=== PATIENT | male | born 1950 | race Caucasian/White ===

== ENCOUNTER → 2020-04-22 13:58 | Outpatient (CLI) | payer MEDICARE, SELFPAY ==
[2020-04-22 13:03] VITALS: BMI 24.0
[2020-04-22 14:19] LABS: Hemoglobin 16.3 g/dL (13.0-16.5); Mean Corp Hgb Conc 33.3 g/dL (32-36); Mean Corpuscular Hgb 33.1 pg (27.0-32.0); Mean Corpuscular Volume 99.4 fL (80-94); Mean Platelet Vol. 8.9 fl (6.2-12.0); Platelet Count 461 K/mm3 (150-450); RBC Distribution Width CV 12.6 % (11.6-14.6); Red Blood Count 4.93 M/mm3 (4.6-6.2); White Blood Count 15.3 K/mm3 (4.4-11.0)
[2020-04-22 14:26] LABS: Prothrombin Time (Protime)PT. 12.3 SECONDS (11.7-14.9)
== END ==
PROVIDERS: PCP Family Medicine; Referring Provider Internal Medicine Critical Care Medicine; Visit Provider Internal Medicine Critical Care Medicine
DX: F17.211 Nicotine dependence, cigarettes, in remission (principal); I48.0 Paroxysmal atrial fibrillation
CPT/HCPCS: 36415; 85027; 85610

== ENCOUNTER → 2020-04-28 08:28 | Outpatient (CLI) | payer MEDICARE, SELFPAY ==
[2020-04-22 13:03] VITALS: BMI 24.0
[2020-04-28] VITALS (18 sets, daily range): BP systolic 94–172; BP diastolic 24–134; PULSE 23–97; RESP 16–38; TEMP 36.6; O2SAT 92–99; BMI 23.0
--- NOTE | 2020-04-28 08:29 | CT_ITS ---
PROCEDURE: CT GUIDED CORE NEEDLE BIOPSY OF A left lower lobe LUNG LESION INDICATION: Male, 70 years old. Left lung mass biopsy PHYSICIAN: Dr. TREASURE Claudio CONSENT: Written informed consent was obtained having explained the risks, benefits and alternatives in detail with the patient who accepted the risks and agreed to proceed. Laboratory review and clinical assessment was performed. CONSCIOUS SEDATION PROTOCOL: The Drugs used were: 1 mg Versed, IV., and 25 mcg Fentanyl, IV. The sedation time was: 24 minutes. Conscious sedation was started at 10:34 AM and terminated at 10:58 AM. The conscious sedation protocol was independently monitored. RADIATION DOSAGE (If Supplied By Facility): CTDIvol = ( 15.6 ) mGy, DLP = ( 240.03 ) mGycm Individualized dose optimization techniques were used for this CT. TECHNIQUE: The patient was placed in the prone position. A noncontrast CT was performed to localize the lesion in the posterior aspect of the left lower lobe . The skin surface was prepped and draped in a sterile fashion. 1% lidocaine was used for local anesthesia. Using CT guidance, a 20-gauge coaxial biopsy device was advanced to the periphery of the lesion. A total of 4 core specimens were obtained. The specimens were placed in a formalin solution. A post procedure CT demonstrated no adverse sequelae or pneumothorax. The patient tolerated the procedure well without adverse event. A negative biopsy does not exclude malignancy. Further imaging or clinical followup based on patient condition and degree of clinical suspicion for malignancy. Suggest rebiopsy, if biopsy results do not match with clinical scenario. CT/Biopsy/Inj or Needle Placement IMPRESSION: 1. CT directed core needle biopsy of the posterior left lower lobe pulmonary nodule using CT image guidance with image documentation as described. Pathology results are pending. 2. Conscious Sedation protocol utilized with independent monitoring. Electronically Signed: Luis Chopra MD at 11:23 EST , Service support ,
[2020-04-28 08:58] LABS: Partial Thromboplast Time 32.7 Seconds (24.1-36.2)
--- NOTE | 2020-04-28 10:30 | ASPIGT_PTH ---
PATIENT: KIERRA MORA LOC: [place] U#:[id number] AGE/SX: 74/M ROOM: RE04/28/[address]: Dr. Bryce Enriquez DO : 1950 BED: DIS: SPEC #: [id number] RECD: 04/28/20 11:00 STATUS: DAVEY LIGeeta #: [id number] YE: 04/28/20 10:[address]: Bryce Enriquez DEPT: SURGICAL PATHOLOGY RECD BY: Kamilah Corley ENTERED: 04/28/20 12:39 SP TYPE: ASP RAD OTHR DR: Dr. Beto Enriquez MD Tissues: Lung, NOS Procedures: FNA Specimen Adequacy Special Stain Group II Mucicarmine Stain (control) Surgery Specimen Level IV Imprint (control) HEADER OPERATION: Left lung mass, CT-guided core biopsy PRE-OP DIAGNOSIS: Lung mass TISSUE SUBMITTED: Left lower lung 20-gauge core x4 MICROSCOPIC DIAGNOSIS Left lower lung mass, CT-guided core biopsy: Non-small cell carcinoma, favor mucinous adenocarcinoma, consistent with lung primary. See comment. SJ:kimber 04/29/2020 COMMENT The specimen is evaluated at the time of biopsy by Dr. Mccoy. Immediate Evaluation = Malignant cells present derived from non-small cell carcinoma. Mucin stain with matched control is used in the evaluation of the specimen. The tumor cells are diffusely positive for mucin. Immunohistochemistry ([id number]) supports the above diagnosis. Molecular studies on the tumor can be performed if clinically indicated. Please notify the laboratory if they are needed. This case was reviewed and diagnosis discussed with Dr. Andrews on 06/05/20. Case has been reviewed in consultation with Dr. Mccoy who concurs with the above diagnosis. IDC:DEBBIE MICROSCOPIC DESCRIPTION Slides are reviewed. GROSS DESCRIPTION Received in fixative is one container labeled with the patient's name and designated left lung mass, CT-guided core biopsy. The specimen consists of multiple irregular fragments of lott soft tissue that in aggregate measure 1 x 0.1 x 0.1 cm. The specimen is totally submitted in one cassette. Three touch imprints are prepared at the time of core biopsy. / SJ:rg 04/28/20 TC:0 CPT: 44449, 26787, 45392 ADDENDUM ADDENDUM ADDENDUM ADDENDUM ADDENDUM ADDENDUM 05/21/2020 09:41 ADDENDUM 05/21/2020 09:41 ADDENDUM 05/21/2020 09:41 ADDENDUM 05/21/2020 09:41 ADDENDUM 05/21/2020 09:41 PD-L1 (KEYTRUDA) IMMUNOHISTOCHEMICAL ANALYSIS FROM [facility] RESULTS: Tumor proportion score: <1% / Negative Please see complete report in e-chart or EMR
--- NOTE | 2020-04-28 10:30 | IMM_PTH ---
PATIENT: KIERRA MORA LOC: CT U#:[id number] AGE/SX: 74/M ROOM: RE04/28/[address]: Dr. Bryce Enriquez DO : 1950 BED: DIS: SPEC #: [id number] RECD: 04/28/20 14:14 STATUS: DAVEY REQ #: [id number] YE: 04/28/20 10:[address]: Bryce Enriquez DEPT: IMMUNOHISTOCHEMISTRY RECD BY: Misa Barillas ENTERED: 04/28/20 14:16 SP TYPE: IMMUNO OTHR DR: Dr. Beto Enriquez MD Tissues: Left lung, NOS Procedures: RCC (add) NAPSIN A (add) CK20 (add) CK5-6 (add) CK7 (add) CK8 (add) HEP PAR (add) TTF1 (add) Pankeratin (initial) P40 (add) PSAP (add) PHYSICIAN & INSTITUTION [address] [address] SPECIMEN INFORMATION: Tissue Source: Left lung Clinical Info: Left lung mass Specimen Number: [id number] CPT code: 17763, 60609 x10 METHODOLOGY: Deparaffinized sections of prefer/formalin-fixed tissue or PAP/DQ stained slides are incubated with monoclonal/polyclonal antibodies/oligonucleotide probes. Localization is made via biotin free immunoperoxidase method. Appropriate controls are performed and reacted as expected. Results on target cell population are indicated in the following table: RESULTS: ANTIBODY / CLONE RESULT AE1-3 (AE1/AE3/PCK26) positive CK7 (OV-TL12/30) positive CK8 (15tkojT12) positive CK20 (KS20.8) negative TTF-1 (8G7G3/1) positive Napsin A (Rabbit Polyclonal) positive HepPar (OCh1E5) positive RCC (PN-15) positive, rare cells PSAP (PASE/4LJ) negative CK5-6 (D5 & 1684) positive, a few cells P40 (BC28) negative These tests were developed and their performance characteristics determined by [facility]. They may not have been cleared or approved by the U.S. Food and Drug Administration. The FDA has determined that such clearance or approval is not necessary. The above immunohistochemical/dualISH markers are ordered and reviewed by the Pathologist. INTERPRETATION: Left lung, CT-guided biopsy: Non-small cell carcinoma, favor adenocarcinoma, consistent with lung primary. DEBBIE:kimber 04/29/2020 Case has been reviewed in consultation with Dr. De La Paz who concurs with the above diagnosis. IDC:AM
--- NOTE | 2020-04-28 10:30 | RAD_ITS ---
STUDY: X-RAY CHEST REASON FOR EXAM: Male, 70 years old. POST LEFT LUNG BIOPSY TECHNIQUE: AP inspiration and expiration views. Immediate post left lung biopsy radiographs. COMPARISON: None. FINDINGS: Tiny left apical pneumothorax. The patient is asymptomatic. RAD/Chest Insp/Exp 2 View IMPRESSION: Tiny left apical pneumothorax. Electronically Signed: Luis Chopra MD at 13:17 EST , Service support ,
[2020-04-28] MEDS: Midazolam 2 MG/2 ML Syringe IV (10:35)
[2020-04-28] MEDS: fentaNYL 100 MCG/2 ML Ampul IV (10:38)
--- NOTE | 2020-04-28 12:28 | NURSING ---
1125 pt home med inhaler is in the locker and patient's daughter and are unavailable by phone, left messages, called respiratory for treatment, they advised to call pharmacy with the patient home meds dosage for equivlant, dr chopra gave verbal order for albuteral order. 1135 order in the computer, talked with pharmacy, staff went to get the medication ordered, called back respiratory to let them know order was in and staff was getting the medication. 1145 master ellsworth obtained to get into patient locker, albuteral inhaler given to patient and he used it. Dr Chopra aware of this. 1155 respiratory present to check on patient, he is doing better but still coughing and bringing up yellow drainage, he states lungs are still tight but able to breath better, respiratory treatment on hold for now. Nurse will continue to evaluate
--- NOTE | 2020-04-28 12:30 | RAD_ITS ---
STUDY: X-RAY CHEST REASON FOR EXAM: Male, 70 years old. 2 HRS - LEFT POST LUNG BX. INSPR/EXPR VWS TECHNIQUE: AP inspiration and expiration views. COMPARISON: Comparison is made with prior examination done earlier today. FINDINGS: There is a 5-10% left pneumothorax. The patient is asymptomatic. RAD/Chest Insp/Exp 2 View IMPRESSION: 5-10% left pneumothorax on the 2 hour delayed post left lung biopsy radiograph. The patient is asymptomatic. Electronically Signed: Luis Chopra MD at 13:17 EST , Service support ,
[2020-04-28] MEDS: Albuterol 2.5 MG/3 ML VIAL.NEB. INHALATION (12:58)
== END ==
PROVIDERS: PCP Family Medicine; Referring Provider Internal Medicine Critical Care Medicine; Visit Provider Internal Medicine Critical Care Medicine
DX: R91.8 Other nonspecific abnormal finding of lung field (principal); I48.0 Paroxysmal atrial fibrillation
CPT/HCPCS: 32408; 36415; 71046; 77012; 85730; 88172; 88305; 88313; 88341; 88342; 94640; 99155; 99156; J7040; A4216; C2613

== ENCOUNTER → 2020-05-09 15:01 | Outpatient (CLI) | payer MEDICARE, SELFPAY ==
[2020-04-30 10:10] VITALS: BMI 22.8
[2020-05-06 15:19] VITALS: BMI 21.9
--- NOTE | 2020-05-09 15:04 | MRI_ITS ---
STUDY: MRI BRAIN WITH AND WITHOUT CONTRAST REASON FOR EXAM: Male, 70 years old. Staging for NSCLC TECHNIQUE: Standardized multiplanar fat and water weighted pulse sequences were obtained. 15CC IV DOTAREM was administered for the contrast portion of the examination. COMPARISON: None. FINDINGS: There are multiple small diffusely distributed brain metastases. The largest are in the right parietal occipital lobe at 1.3 cm and right frontal posterior parasagittal lobe 1.3 cm. Many of the lesions have peripheral rim enhancement/nodular with central lower enhancement, probably cystic/necrotic. Most lesions are surrounded by disproportionate vasogenic edema. Lesions are present bilaterally in the subcortical hemispheres, basal ganglia, left lon. Visually estimated lesion number is 20-25. There is no mass effect, shift, hydrocephalus or herniation. There is no acute infarct or extra parenchymal fluid collections. There is left mastoid effusion and right maxillary sinus fluid attenuation. MRI/Brain W/WO Contrast IMPRESSION: Multiple small brain metastases. Electronically Signed: Adonay Lake MD at 19:59 EST Tel , Service support ,
== END ==
PROVIDERS: PCP Family Medicine; Referring Provider Internal Medicine Critical Care Medicine; Visit Provider Internal Medicine Critical Care Medicine
DX: C34.90 Malignant neoplasm of unspecified part of unspecified bronchus or lung (principal)
CPT/HCPCS: 70553; A9575

== ENCOUNTER → 2020-05-13 14:50 | Outpatient (CLI) | payer MEDICARE, SELFPAY ==
[2020-05-06 15:19] VITALS: BMI 21.9
--- NOTE | 2020-05-13 16:00 | PET_ITS ---
EXAMINATION: FDG PET/CT INDICATIONS: A 70-year-old male with reported history of carcinoma of the lung presenting for initial staging examination. COMPARISON EXAMINATION: CT lung biopsy report dated 04/28/20 INDEX LESION SIZE SUV INTERPRETATION Left mid posteromedial lung-left lower lobe 48.8 x 61.4-mm (frame 172) 7.0 Fulfills quantitative criteria for viable neoplasm Mediastinum, left thoracic perihilum 15.9-mm (largest) (frame 181) 4.9 (max) Fulfills quantitative criteria for viable neoplasm Left hemithorax pleural interface (n=2) 21.4-mm (largest) (frame 168) 6.4 (max) Fulfills quantitative criteria for viable neoplasm TECHNIQUE: Following the intravenous administration of 15.0 mCi of F-18 deoxyglucose via the left antecubital fossa, multiplanar image acquisitions of the neck, chest, abdomen and pelvis to level of mid thigh, obtained at one hour post radiopharmaceutical administration contemporaneously interpreted with the current CT of the neck, chest, abdomen and pelvis to level of mid thigh, dated 05/13/[address] lung biopsy report dated 04/28/20 reveal: SERUM GLUCOSE LEVEL: 123 mg/dl. HEIGHT: 69 inches. WEIGHT: 150 lbs. FINDINGS: 1. An increase in glucose metabolism with central photopenia is defined in the left mid-lower posteromedial lung-left lower lobe generating a calculated maximal standard uptake value of 7.0. The maximal axial diameter of the corresponding parenchymal density-mass on review of CT of the chest dated 05/13/20 is 48.8-mm (transverse) x 61.4-mm (AP). 2. Enhanced tracer uptake is observed in the carinal level mediastinum to the left of the midline, left infrahilar region adjacent to the descending thoracic aorta rendering a calculated maximal standard uptake value of 4.9. The maximal axial diameter of the largest, most conspicuous metabolic-morphologic abnormality on review of CT of the chest dated 05/13/20 is 15.9-mm (transverse). 3. Two separate foci of increased radiopharmaceutical concentration are manifest in the left hemithorax at the pleural interface. The calculated maximal standard uptake value is 6.4. The maximal axial diameter of the largest, most conspicuous metabolic, morphologic abnormality on review of CT of the chest dated 05/13/20 is 21.4-mm (AP). 4. Normal physiologic distribution of the radiopharmaceutical is apparent in the hepatic (2.5) and splenic parenchyma, both renal units, bladder and visualized intestinal tract. The visualized portion of the cerebral cortical-subcortical structures demonstrate symmetric and preserved glucose metabolism. Diffuse radiopharmaceutical concentration is noted in all four quadrants of the abdomen and pelvis. Pertinent CT findings are as follows: CHEST: Emphysematous change is noted in the bilateral upper lung zones. A loculated left basilar hemithorax pleural effusion demonstrates no evidence of quantitatively significant increased FDG uptake. There is atherosclerotic calcification defined in the thoracic aorta without evidence of dilatation-aneurysm formation. Coronary arterial calcification is observed. Bilateral axillary soft tissue densities with fatty hilus are ametabolic. Additional subcentimeter mediastinal soft tissue reveals no evidence of increased FDG uptake. ABDOMEN AND PELVIS: Cholelithiasis is defined. Dystrophic calcification is manifest within the prostate gland without evidence of increased tracer uptake. Right and left inguinal soft tissue densities are non-glucose avid. Dystrophic calcification is manifest within the prostate gland without evidence of increased tracer uptake. SKELETAL: Degenerative changes are noted in the cervical, thoracic and lumbar spine without evidence of increased radiopharmaceutical concentration. There are no sclerotic, mixed sclerotic-lytic and/or primarily lytic changes noted on review of the appendicular, axial skeletal structures. PET/PET/CT Tumor Base -Thigh Init IMPRESSION: 1. ABNORMAL EXAMINATION INDICATIVE OF MALIGNANT PRIMARY-METASTATIC VIABLE NEOPLASM. 2. Increased glucose concentration observed in the left mid lung-left lower lobe fulfills quantitative criteria for viable neoplasm. (Tate et al, Annals of Internal Medicine, 138:724, 2003). 3. Viable metastatic disease is noted in the mediastinum and left thoracic perihilum. (Ky et al, Journal of Clinical Oncology 16:2142, 1998). 4. Facilitated tracer concentration observed in the left hemithorax at the pleural interface in two separate nodular presentations fulfills quantitative criteria for malignant transformation-metastasis. (Jodi, et al, Chest 122:1918, 2002). Electronic Signature Fabian Peters D.O. Accurate Quantification of SUVs for this report are calculated using the exclusive [employer]? Technology.??Exclusive [place]. Patent [employer]uquan? Technology (U.S. Patent No. [phone] [phone]). Electronically Signed: Fabian Peters DO at 22:24 EST Tel , Service support ,
== END ==
PROVIDERS: PCP Family Medicine; Referring Provider Internal Medicine Critical Care Medicine; Visit Provider Internal Medicine Critical Care Medicine
DX: Z85.118 Personal history of other malignant neoplasm of bronchus and lung (principal); C34.02 Malignant neoplasm of left main bronchus
CPT/HCPCS: 78815; A9552

== ENCOUNTER 2020-06-17 05:57 | Day surgery (SDC) | payer MEDICARE, SELFPAY ==
[2020-05-15 10:21] VITALS: BMI 23.1
[2020-06-12 09:27] VITALS: BMI 23.4
[2020-06-17] VITALS (7 sets, daily range): BP systolic 107–121; BP diastolic 61–76; PULSE 69–81; RESP 16–18; TEMP 36.2–36.4; O2SAT 96–99; BMI 23.3
[2020-06-17] MEDS: Lactated Ringers 1,000 ML 100 ML IV (06:41)
--- NOTE | 2020-06-17 07:00 | HP_ITS ---
Intake Vital Signs 06/12/20 Height 5 ft 9 in 06/12/20 Weight: 159 lb 06/12/20 BMI 23.4 06/12/20 BP 124/75 H 06/12/20 Blood Pressure Location Rt brachial 06/12/20 Position Sitting 06/12/20 Respiration 16 Intake Visit Reasons: PORT PLACEMENT Chief Complaint: port placement Lining Stitcher Required: No Is patient in pain?: No Allergies No Known Allergies Allergy (Verified 06/12/20 09:28) Medications aspirin 325 mg tablet 325 mg PO QDAY tablet 04/21/17 [History Confirmed 06/12/20] atenolol 100 mg tablet 100 mg PO QDAY #90 tablet 03/08/19 [Rx Confirmed 06/12/20] lisinopril 10 mg tablet 10 mg PO QDAY #90 tablet 03/26/20 [Rx Confirmed 06/12/20] albuterol sulfate 90 mcg/actuation aerosol inhaler 2 puff INHALATION Q4H PRN #8.5 gm 04/30/20 [Rx Confirmed 06/12/20] fluticasone fur. 100 mcg-umeclid 62.5 mcg-vilant 25 mcg inhalat.powder 1 inh INHALATION DAILY #60 each 04/30/20 [Rx Confirmed 06/12/20] ipratropium 0.5 mg-albuterol 3 mg (2.5 mg base)/3 mL nebulization soln 3 ml INHALATION Q4H PRN #180 ml 04/30/20 [Rx Confirmed 06/12/20] Dexamethasone [Decadron] 4 mg PO 4X/DAY #60 tablet 05/12/20 [Rx Confirmed 06/12/20] PFSH Medical History Essential hypertension (Chronic) Paroxysmal atrial fibrillation (Chronic) Palpitations (Acute) Hyperlipidemia (Chronic) Tobacco abuse (Acute) Hypertension (Inactive) Surgical History History of knee surgery (Acute) Family History Brother CAD (coronary artery disease) COPD (chronic obstructive pulmonary disease) Mother Colon cancer Breast cancer Mother No problems noted. Father Bone cancer Social History (Updated 06/12/20 @ 09:[address] Rhina Chavez MD) Smoking Status: Former smoker alcohol intake: current substance use type: does not use HPI HPI HPI: KIERRA MORA, is a 70 M who presents to the office today for HPI HPI Surgical H&P: Yes HPI: KIERRA MORA is a 70 M who presents to the office today for port placement due to metastatic lung cancer. ROS General General: Yes fatigue; no weight change Cardio Cardiovascular: Yes atrial fibrillation and high blood pressure; no chest pain Resp Respiratory: Yes shortness of breath, Yes cough, Yes COPD, Yes emphysema Exam Const General: cooperative, comfortable, no acute distress Chest Chest palpation & inspection: normal inspection of the chest (Upper chest) Resp Effort & Inspection: normal respiratory effort Cardio Rate: regular rate Assessment & Plan Problems 1. Adjustment and management of vascular access device Z45.2 2. Primary cancer of left lower lobe of lung C34.32 3. Brain metastases C79.31 Plan I have discussed above with the patient- Port-a-Cath placement. Right possible left Patient has been counseled as to the risks/benefits of the procedure. I have explained the risks of the surgery, including but not limited to: infection, bleeding, injury to any blood vessels/nerves, injury to lungs (such as pneumothorax or hemothorax and need for chest tube), not having any access, nonfunctioning of port due to thrombosis, infection of port, etc. the patient understands and agrees to proceed. I have answered all the patient's questions to the patient?s satisfaction and the patient has no further questions. Rhina Chavez M.D. Pager: [phone] [facility] [address] [place] [address], [address] [place] [id number] Office: [phone] Plan Detail Follow Up We will schedule port placement for 06/17/2020 Coding Level of Care Code Off vis,new,level 3 Diagnoses Adjustment and management of vascular access device Z45.2 Primary cancer of left lower lobe of lung C34.32 Brain metastases C79.31 COVID (Procedure Consent) Procedure Criteria Procedure Criteria: Yes Elective The surgeon/proceduralist and patient have discussed in detail the risk of exposure to and/or potential harm posed by the COVID-19 virus with having a surgery/procedure at this time versus the risk of? delaying the surgery/procedure. It is not possible to know either the risk of delaying the surgery or procedure or chance of getting an infection with perfect accuracy, but a joint decision was made between the patient and the surgeon/proceduralist ?to proceed at this time with the scheduled surgery/procedure as indicated on the consent form. I have re-examined the patient. There are no clinical changes since date of exam.
[2020-06-17] MEDS: Cefazolin 2 GM in 0.9% Normal Saline 100 ML IV (07:27)
[2020-06-17] MEDS: Bupivacaine Mpf 0.5% 30 ML VIAL (07:55)
[2020-06-17] MEDS: Lidocaine 1% /Epi 1:100 (20ml) 20 ML Vial (07:55)
--- NOTE | 2020-06-17 08:14 | PCM.OPRPT ---
Report of Operation Date of Procedure: 06/17/20 Pre-Operative Diagnosis: Z45.2, lung cancer Post-Operative Diagnosis: Same Surgery/Procedure Performed:: 1. Placement of right IJ Port-A-Cath. 2. Use of ultrasound. 3. Use of fluoroscopy Type of Anesthesia:: Local MAC Anesthesiologist: Yrn Thomas Special Medications: ancef 2 grams IV x1 Specimen's removed: none Estimated Blood Loss (mL): < 10 cc Fluids Replaced: 700 cc Description of Procedure: After informed consent was given, the patient was brought to the operating room and placed in the supine position. Appropriate time out protocol was followed. Patient was then given IV conscious sedation for anesthesia. The patient's right upper chest and neck were then prepped with a surgical skin preparation and sterile surgical drapes were placed. After proper landmarks were ascertained, the skin at the upper right chest area was then infiltrated with 1:1 mixture of 1% lidocaine with epinephrine and 0.5% marcaine. A needle trocar was then inserted into the right internal jugular vein with ultrasound guidance-multiple vessels were viewed with u/s and the right IJ was chosen-- and there was good aspiration of venous blood. A wire was then threaded into the needle trocar and this was visualized under fluoroscopy to ensure that the wire was in the superior vena cava. Once this was done, then the needle trocar was removed. A small skin jayna was made with an 11 blade knife at the wire entrance site. The dilator with the introducer sheath attached was then placed over the wire into the right internal jugular vein via the Seldinger technique and this was visualized under fluoroscopy. The dilator and sheath were in proper position as visualized by fluoroscopy. A subcutaneous pocket was then created caudad to the catheter insertion site. A transverse skin incision was made after the skin and subcutaneous tissues were infiltrated with local anesthetic. Blunt dissection was then used to create a space large enough for placement of the subcutaneous port. The catheter was then tunneled into the subcutaneous pocket. The wire and dilator were then removed. The catheter was then threaded into the introducer sheath and was positioned with its tip at the junction of the superior vena cava and the right atrium as visualized under fluoroscopy. The excess catheter was transected. The catheter was then attached to the subcutaneous port using manufacturers guidelines. The catheter was flushed with a heparin saline mixture prior to placement. Hemostasis was carefully controlled with electrocautery. The port was sutured to the subcutaneous fascia using 2-0 Vicryl suture at two sites. The port was then placed in the subcutaneous pocket. The incision were reapproximated with interrupted subdermal 3-0 vicryl sutures. The skin was reapproximated with 3-0 nylon suture in a interrupted fashion. Steristrips were used for reinforcement of the skin closure at IJ insertion site and a sterile opsite dressings were applied. The patient tolerated the procedure well. Implants Used: [employer] PowerPort isp M.R.I. 6Fr Lot [id number] ref [id number] Grafts/Implants Used: [employer] PowerPort isp M.R.I. 6Fr Lot [id number] ref [id number] - Complications none
--- NOTE | 2020-06-17 08:17 | DCINST_ITS ---
Discharge Diet: Light diet - advance as tolerated Discharge Activity: May not drive while taking narcotic pain medications. Call your doctor if your incision/area has: Continuous Slow Oozing, Sudden Increased Bleeding, Increased Pain/ Swelling, Increased Redness, Foul Smelling Discharge, Swelling at the incision site Call your doctor if you observe: Fever of 101 or Higher Change Dressing in (Days):: 2 - Okay to keep the dressing on the port site for 2 to 3 days Additional Dressing/Incision Instructions:: Keep port site clean and dry for 5 days. Okay to lower shower and upper sponge bath or tape off with a Ziploc bag to shower. Okay for the neck incision to get wet after 1 day. Steri-Strips will fall off in 7 to 10 days if did not follow-up okay to remove Allergies/Adverse Reactions: Allergies No Known Allergies Allergy (Verified 06/17/20 06:22) Medications to take at Discharge aspirin 325 mg tablet 325 mg PO QDAY tablet 04/21/17 atenolol 100 mg tablet 100 mg PO QDAY #90 tablet 03/08/19 lisinopril 10 mg tablet 10 mg PO QDAY #90 tablet 03/26/20 albuterol sulfate 90 mcg/actuation aerosol inhaler 2 puff INHALATION Q4H PRN #8.5 gm 04/30/20 Fluticasone/Umeclidin/Vilanter [Trelegy Ellipta 100-62.5-25] 1 each IH DAILY 06/13/20 Multivitamin with Folic Acid [Therems Multivitamin Tablet] 400 mcg PO DAILY 06/17/20 Oxycodone HCl/Acetaminophen [Percocet 5/325] 1 - 2 tablet PO Q6H PRN PRN 2 Days #5 tablet 06/17/20 The following prescriptions were given: Oxycodone HCl/Acetaminophen [Percocet 5/325] 1 - 2 tablet PO Q6H PRN PRN 2 Days #5 tablet PRN Reason: Pain Transmission Status: Sent to [facility] Primary Care Physician: Beto Enriquez MD [Primary Care Provider] - Test Results: Test results from this visit will be discussed in further detail at your follow- up appointment, if applicable. Please Follow Up With: Rhina Chavez MD - After 5 PM and on weekends call [phone] with any concerns When: Call the office for a follow-up appointment in 10 days to remove sutures Proposed Discharge Date: 06/17/20
--- NOTE | 2020-06-17 08:30 | RAD_ITS ---
STUDY: X-RAY CHEST REASON FOR EXAM: Male, 70 years old. Port -- pacu TECHNIQUE: Single AP portable view of the chest. COMPARISON: Comparison is made with prior examination dated 04/28/2020. FINDINGS: A right-sided portacatheter has been placed. The tip in the midportion of the superior vena cava. There is hyperinflation of the lungs consistent with chronic obstructive lung disease (COPD). Persistent 5.5 cm x 4.4 cm left perihilar mass. There is no demonstrated pleural abnormality. Normal size heart. Normal visualized pulmonary arteries. Normal visualized aortic arch and descending thoracic aorta. Normal visualized thoracic spine. Normal visualized ribs, clavicles, and shoulders. There is no demonstrated abnormality of the visualized soft tissue structures of the upper abdomen. RAD/CXR for Line Placement IMPRESSION: The tip of the right portacatheter is in the midportion of the superior vena cava. Stable left perihilar mass. Electronically Signed: Luis Chopra MD at 8:45 EDT , Service support ,
== END 2020-06-17 09:52 | disposition home or self-care (01) ==
LOC: SDC 05:58 → AC 05:59
PROVIDERS: PCP Family Medicine; Referring Provider Surgery; Visit Provider Surgery
PROC: (CPT 36561; principal; 2020-06-17 07:15)
DX: Z45.2 Encounter for adjustment and management of vascular access device (principal); C34.32 Malignant neoplasm of lower lobe, left bronchus or lung; C79.31 Secondary malignant neoplasm of brain; I10 Essential (primary) hypertension; I48.0 Paroxysmal atrial fibrillation; E78.5 Hyperlipidemia, unspecified; Z79.899 Other long term (current) drug therapy; Z79.82 Long term (current) use of aspirin; Z79.51 Long term (current) use of inhaled steroids; Z87.891 Personal history of nicotine dependence; J44.9 Chronic obstructive pulmonary disease, unspecified
CPT/HCPCS: 00532; 36561; 71045; 77001; 87426; C9803; J7120

== ENCOUNTER → 2020-06-30 17:32 | Outpatient (CLI) | payer MEDICARE, SELFPAY ==
[2020-05-15 10:21] VITALS: BMI 23.1
[2020-06-24 09:03] VITALS: BMI 22.7
--- NOTE | 2020-06-30 17:40 | RAD_ITS ---
INDICATION: lower back pain. 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 EXAMINATION/TECHNIQUE: X-RAY - XR Spine Lumbar 2 or 3 Views COMPARISON: None. FINDINGS: VERTEBRAE: Age indeterminate mild anterior wedge compression deformities of L1 and T12. 3 mm retrolisthesis L3 on L4. Preservation of the normal lumbar lordosis. Moderate multilevel facet arthropathy. DISCS: Moderate multilevel disc space narrowing and osteophytosis. INCLUDED ABDOMEN: Included bowel gas pattern is non-obstructive. OTHER: Degenerative changes of the bilateral sacroiliac joints. Vascular calcifications. RAD/Lumbar Spine 2 or 3 Views IMPRESSION: Age indeterminate mild anterior wedge compression deformities of L1 and T12. Grade 1 retrolisthesis L3 on L4. Moderate multilevel degenerative changes of the lumbar spine as described above. Electronically Signed: Jonathan Dawson MD at 22:48 EDT Tel , Service support ,
== END ==
PROVIDERS: PCP Family Medicine; Referring Provider Anesthesiology Pain Medicine; Visit Provider Anesthesiology Pain Medicine
DX: M54.9 Dorsalgia, unspecified (principal)
CPT/HCPCS: 72100

== ENCOUNTER → 2020-08-06 12:33 | Outpatient (CLI) | payer MEDICARE, SELFPAY ==
[2020-05-15 10:21] VITALS: BMI 23.1
[2020-07-22 11:11] VITALS: BMI 22.0
[2020-08-06 11:27] VITALS: BMI 20.7
--- NOTE | 2020-08-06 12:46 | MRI_ITS ---
STUDY: MRI LUMBAR SPINE WITHOUT CONTRAST REASON FOR EXAM: Male, 70 years old. BACK PAIN,COMPRESSION FX TECHNIQUE: Standardized fat and water weighted pulse sequences were obtained in the sagittal and axial planes. COMPARISON: None FINDINGS: T12-L1: Normal endplates. Normal disc height, hydration and morphology. Normal bilateral facet joints. Normal central canal and bilateral lateral recesses. Normal bilateral intervertebral neural foramina. Normal lumbar lordosis. There is no substantial scoliosis. Normal conus medullaris that terminates at the L1. Heterogeneous marrow signal throughout the lumbar spine and sacrum suggestive of marrow regeneration from chronic hypoventilation, lung disease, or anemia. L1-2: Mild bilateral facet hypertrophy with fluid the facet joints consistent with instability and mild ligament flavum hypertrophy. 2 mm retrolisthesis of L1 on L2 with a mild bilobed disc protrusion produces mild spinal stenosis and mild bilateral neural foraminal stenosis. L2-3: Mild bilateral facet hypertrophy with fluid in the facet joints consistent with instability and mild ligament flavum hypertrophy. 2 mm retrolisthesis of L2 on L3 with a mild bilobed disc protrusion produces mild spinal stenosis and mild bilateral neural foraminal stenosis. L3-4: Mild bilateral facet hypertrophy with facet joints consistent with instability and moderate ligament flavum hypertrophy. 2 mm retrolisthesis of L3 on L4 with a mild bilobed disc protrusion produces moderate spinal stenosis with mild bilateral lateral recess stenosis and moderate bilateral neural foraminal stenosis. L4-5: Moderate by lateral facet hypertrophy and ligament flavum hypertrophy. 2 mm retrolisthesis of L4 and L5 with a mild broad disc protrusion produces moderate spinal stenosis with moderate bilateral lateral recess stenosis with abutment of the L5 nerve roots bilaterally and moderate bilateral neural foraminal stenosis with abutment of the exiting L4 nerve roots bilaterally. L5-S1: Normal endplates. Normal disc height, hydration and morphology. Normal bilateral facet joints. Normal central canal and bilateral lateral recesses. Normal bilateral intervertebral neural foramina. Normal visualized sacral ala. Normal visualized paraspinous soft tissue structures. MRI/Spine Lumbar (Routine) IMPRESSION: Multilevel degenerative changes, as described above. Electronically Signed: Fabian Min MD at 15:49 EDT Tel , Service support ,
--- NOTE | 2020-08-06 12:46 | MRI_ITS ---
STUDY: MRI THORACIC SPINE WITHOUT CONTRAST REASON FOR EXAM: Male, 70 years old. BACK PAIN, COMPRESSION FX TECHNIQUE: Standardized fat and water weighted pulse sequences were obtained in the sagittal and axial planes. COMPARISON: None. FINDINGS: Normal kyphosis of the thoracic spine. There is no substantial scoliosis. T1-2, T2-3, T3-4, T4-5, T5-6, T6-7, T7-8, T8-9, T9-10, T10-11, T11-12: Normal endplates. Normal disc hydration, heights and morphology of the corresponding intervertebral discs. Normal central canal and intervertebral neural foramina at the corresponding levels. Normal visualized thoracic cord. Normal conus medullaris that terminates at the L1. The soft tissue structures are unremarkable. MRI/Spine Thoracic (Routine) IMPRESSION: Normal unenhanced MRI examination of the thoracic spine. Electronically Signed: Fabian Min MD at 15:44 EDT Tel , Service support ,
== END ==
PROVIDERS: PCP Family Medicine; Referring Provider Anesthesiology Pain Medicine; Visit Provider Anesthesiology Pain Medicine
DX: C34.00 Malignant neoplasm of unspecified main bronchus (principal); M80.08XA Age-related osteoporosis with current pathological fracture, vertebra(e), initial encounter for fracture; M51.36 Other intervertebral disc degeneration, lumbar region; M51.37 Other intervertebral disc degeneration, lumbosacral region
CPT/HCPCS: 72146; 72148